=== PATIENT | female | born 1965 | race Caucasian/White ===

== ENCOUNTER 2024-05-24 09:03 | Outpatient (CLI) | payer MEDICARE, MEDICAID, SELFPAY ==
--- NOTE | 2024-05-24 09:09 | XR_ITS ---
FINAL REPORT TECHNIQUE: Bone mineral density was calculated of the lumbar spine and hip. CLINICAL HISTORY: BONE DENSITY COMPARISON: None FINDINGS: Using L1-4, the bone mineral density of the spine is 1.224 g/cm2, corresponding to T-score of 1.6. Using the left hip, the bone mineral density of the femoral neck is 0.801 g/cm2, corresponding to a T-score of -1.2. NOTE: T-score: Standard deviation compared with peak bone mass of young adult mean. *Following the recommendations of the International Society of Bone densitometry, classification of hip BMD is based on the lower of two T-scores; total hip or femoral neck. IMPRESSION: Diminished bone mineral density of the left hip consistent with low bone density. Normal bone mineral density of the lumbar spine, which may be artificially elevated secondary to hypertrophic changes. Reviewed, Interpreted and Dictated by Casey Canchola III, MD Transcribed by Cecy Meraz Authenticated and [facility] [place] [place]
== END 2024-05-24 23:59 | disposition home or self-care (01) ==
LOC: RAD 09:04
PROVIDERS: PCP Nurse Practitioner Family; Visit Provider Nurse Practitioner Family
DX: M81.0 Age-related osteoporosis without current pathological fracture (principal)
CPT/HCPCS: 77080

== ENCOUNTER 2024-06-25 14:34 | Outpatient (CLI) | payer MEDICARE, MEDICAID, SELFPAY ==
--- NOTE | 2024-06-25 14:40 | MR_ITS ---
FINAL REPORT CLINICAL HISTORY: LOWER BACK PAIN, follow up COMPARISON: None FINDINGS: Multiplanar MR imaging of the lumbar spine was performed without contrast. On the sagittal T2-weighted images, disc degeneration is seen throughout. There is mild retrolisthesis of L1 on L2 and L2 on L3. Endplate changes are noted, greatest at L1-2. A hemangioma is noted at L1. The conus has an unremarkable appearance. L1-2: Annular disc bulge, facet arthropathy, and osteophytes. Left foraminal disc protrusion. Mild bilateral neural foraminal narrowing. L2-3: Annular disc bulge, facet arthropathy, and osteophytes. Mild bilateral neural foraminal narrowing. L3-4: Annular disc bulge, facet arthropathy, and osteophytes. Right foraminal disc protrusion. Moderate right and mild left neural foraminal narrowing. L4-5: Annular disc bulge and facet arthropathy. Mild bilateral neural foraminal narrowing. L5-S1: Annular disc bulge and facet arthropathy. Mild bilateral neural foraminal narrowing. IMPRESSION: Multilevel degenerative disc disease and spondylosis as described. Disc protrusions at L1-2 and L3-4. Reviewed, Interpreted and Dictated by Casey Canchola III, MD Transcribed by Becky Mccarthy Authenticated and [facility]
== END 2024-06-25 23:59 | disposition home or self-care (01) ==
LOC: RAD 14:35
PROVIDERS: PCP Nurse Practitioner Family; Visit Provider Orthopaedic Surgery
DX: M41.9 Scoliosis, unspecified (principal); M54.59 Other low back pain
CPT/HCPCS: 72148

== ENCOUNTER 2024-07-01 11:09 | Day surgery (SDC) | payer MEDICARE, MEDICAID, SELFPAY ==
--- NOTE | 2024-07-01 11:28 | EXP.ANES.CKL ---
[facility] Disclaimer: The information contained in this section may have been updated after the patient was seen, as this information can be updated by other users. Medical History (Updated 07/01/24 @ 11:44 by Criss Call RN) Chronic kidney disease History of COVID-19 COPD (chronic obstructive pulmonary disease) Asthma Anxiety and depression Arthritis History of gastroesophageal reflux (GERD) Hypothyroid Diabetes Coronary artery disease Hypertension Hyperlipidemia History of heart attack Surgical History (Updated 07/01/24 @ 11:44 by Criss Call RN) History of surgery H/O tubal ligation History of cholecystectomy Family History Mother Anemia Asthma Cancer Heart attack Thyroid disorder Grandmother Anemia Asthma Diabetes Hypertension Stroke Tuberculosis Father Asthma Coronary artery disease Diabetes Heart attack Hypertension Thyroid disorder Brother Heart attack Hypertension Thyroid disorder Daughter Kidney disease Other Alcoholism Social History Smoking Status: Current every day smoker alcohol intake: never substance use type: denies use current occupational status: disabled Travel in the last 8 weeks: None adopted: No caregiver/support person: No household members: none housing: house lives independently: Yes marital status: caffeine: Yes [facility] Anesthesia Checklist Patient Identification Patient Identification: Arm Band and Verbal (Name & ) Structural Data Admitted From: Home Planned Operative Procedure/s: Colonoscopy Consent for Planned Operative Procedure(s) Verified: Yes Verified Documents: Surgical Consent and History and Physical NPO Status Verified Time NPO: 07:00 Additional verifications Fingerstick Blood Glucose: 165 Patient : No Anesthesia Reactions: No Cardiovascular Assessment Heart Sounds: S1 & S2 Pulse Rhythm: Irregular Peripheral Edema: No Airway Assessment Mallampati Score:: Class II C-Spine Mobility Assessed: Yes (FROM) TMJ Mobility Assessed: Yes Dentition: Edentulous Neurological Assessment Level of Consciousness: Awake, Appropriate and Follows Commands Hx Seizures: No Numbness or tingling in extremities: No Anesthesia Plan Anesthesia Risk discussed: Yes Anesthesia Plan: Verified ASA Class: III Anesthesia Type: MAC
[2024-07-01 11:40] VITALS: BP 133/87; PULSE 98; RESP 18; TEMP 36.4; O2SAT 95; BMI 34.9
[2024-07-01 11:45] LABS: POC Glucose,Bedside 165 (70-110)
[2024-07-01] MEDS: LACTATED RINGERS 1000ML 1,000 ML 25 ML IV (11:49)
[2024-07-01 12:04] VITALS: O2SAT 96
--- NOTE | 2024-07-01 12:04 | P.HP_ITS ---
History of Present Illness *Admission Date: 07/01/24 *Reason for visit:: Screening *History of present illness: Mrs. Condon is a 59-year-old female who is here for screening colonoscopy. The examination is deemed medically necessary for screening colonoscopy. The patient has been seen, interviewed and examined prior to the procedure by both myself and the anesthesia provider. [facility] Disclaimer: The information contained in this section may have been updated after the patient was seen, as this information can be updated by other users. Medical History (Updated 07/01/24 @ 12:05 by Christian Jimenez II, MD) Chronic kidney disease History of COVID-19 COPD (chronic obstructive pulmonary disease) Asthma Anxiety and depression Arthritis History of gastroesophageal reflux (GERD) Hypothyroid Diabetes Coronary artery disease Hypertension Hyperlipidemia History of heart attack Surgical History (Updated 07/01/24 @ 11:44 by Criss Call RN) History of surgery H/O tubal ligation History of cholecystectomy Family History Mother Anemia Asthma Cancer Heart attack Thyroid disorder Grandmother Anemia Asthma Diabetes Hypertension Stroke Tuberculosis Father Asthma Coronary artery disease Diabetes Heart attack Hypertension Thyroid disorder Brother Heart attack Hypertension Thyroid disorder Daughter Kidney disease Other Alcoholism Social History (Updated 07/01/24 @ 11:56 by Verito Perez CRNA) Smoking Status: Current every day smoker alcohol intake: never substance use type: denies use current occupational status: disabled Travel in the last 8 weeks: None adopted: No caregiver/support person: No household members: none housing: house lives independently: Yes marital status: caffeine: Yes Review of Systems Review of Systems Review of systems (narrative): Negative *Cardiovascular Comments: Negative *Gastrointestinal Comments: Negative *Genitourinary Comments: Negative *Musculoskeletal Comments: Negative *Neurologic Comments: Negative Meds Home Medications and Allergies Home Medications ?Medication ?Instructions ?Recorded ?Confirmed ?Type albuterol sulfate 2.5 mg/3 mL 0 mg continuous nebulization DAILY 12/14/23 07/01/24 History (0.083 %) solution for nebulization PRN Asthma albuterol sulfate 90 mcg/actuation 2 inh inhalation QID PRN Asthma 12/14/23 07/01/24 History aerosol inhaler atorvastatin 40 mg tablet 0 mg PO DAILY 12/14/23 07/01/24 History cetirizine 10 mg tablet 10 mg PO DAILY 12/14/23 07/01/24 History duloxetine 60 mg capsule,delayed 0 mg PO DAILY 12/14/23 07/01/24 History release empagliflozin 25 mg tablet 0 mg PO DAILY 12/14/23 07/01/24 History (Jardiance) fluticasone furoate 200 1 inh inhalation DAILY 12/14/23 07/01/24 History mcg-vilanterol 25 mcg/dose inhalation powder (Breo Ellipta) gabapentin 300 mg capsule 0 mg PO TID 12/14/23 07/01/24 History glipizide 10 mg tablet, extended 0 mg PO DAILY 12/14/23 07/01/24 History release 24 hr levothyroxine 88 mcg tablet 88 mcg PO DAILY 12/14/23 07/01/24 History losartan 25 mg tablet 25 mg PO BID 12/14/23 07/01/24 History metoprolol tartrate 25 mg tablet 25 mg PO BID 12/14/23 07/01/24 History mirtazapine 15 mg tablet 15 mg PO DAILY 12/14/23 07/01/24 History pantoprazole 40 mg tablet,delayed 40 mg PO DAILY 12/14/23 07/01/24 History release umeclidinium 62.5 mcg/actuation 1 inh inhalation DAILY 12/14/23 07/01/24 History blister powder for inhalation (Incruse Ellipta) semaglutide 2 mg/dose (8 mg/3 mL) 2 mg SQ WEEKLY 03/14/24 07/01/24 History subcutaneous pen injector (Ozempic) sodium,potassium,mag sulfates 17.5 See Rx Instructions PO .COMPLEX 06/21/24 07/01/24 Rx gram-3.13 gram-1.6 gram oral soln #354 mL (Suprep Bowel Prep Kit) aspirin 81 mg capsule 81 mg PO DAILY 07/01/24 07/01/24 History New Prescriptions to Start Prescriptions: Allergies Allergy/AdvReac Type Severity Reaction Status Date / Time Sulfa (Sulfonamide Allergy Unknown Rash Verified 07/01/24 11:29 Antibiotics) Exam Data for Last 24 hours Vital signs and Labs for Last 24 Hours: Temp Pulse Resp BP Pulse Ox O2 Del Method 97.6 F 98 H 18 133/87 95 Room Air 07/01/24 11:40 07/01/24 11:40 07/01/24 11:40 07/01/24 11:40 07/01/24 11:40 07/01/24 11:40 Laboratory Results - last 24 hr 07/01/24 11:38: POC Glucose 165 H I & O for Last 24 hours: Intake & Output 06/28/24 06/29/24 06/30/24 07/01/24 23:59 23:59 23:59 23:59 Weight 185 lb *Routine HEENT Exam Head: Present normocephalic Eye: Present EOMI and PERRL ENT: Present mucous membranes moist *Routine Neck Exam Neck: Present supple *Routine Respiratory Exam Respiratory: Present CTA bilaterally *Routine Cardiovascular Exam Cardiovascular: Present RRR *Routine Abdominal Exam Abdominal: Present soft and normoactive bowel sounds; Absent tenderness *Routine Rectal Exam Rectal:: deferred *Routine Genitalia Exam Genitalia:: deferred *Routine Extremities Exam Extremities: Absent cyanosis, clubbing or edema *Routine Skin Exam Skin: Present warm; Absent rash *Routine Neurological Exam Neurological: Present alert and oriented X3 Assessment and Plan *Assessment and plan (1) Screening for colon cancer: Status: Acute Category: Medical Code(s): Z12.11 - Encounter for screening for malignant neoplasm of colon Plan A/P: 1. Screening for colon cancer is the preprocedural diagnosis. The patient will be anesthetized/sedated using MAC sedation. The patient has been seen and examined. Cardiac and lung assessment prior to the examination is stable. Proceed with planned colonoscopy
--- NOTE | 2024-07-01 12:05 | P.PCN_ITS ---
[facility] Procedure Note Date: 07/01/24 Time: 12:34 Procedure Note:: Colonoscopy Procedure Report: Colonoscopy with cold snare polypectomy Endoscopist: Christian Jimenez II, MD Referring physician: PEDRO Clement Date of Procedure: July 01, 2024 Equipment: Olympus 190 variable stiffness pediatric colonoscope Sedation: MAC sedation Indication: Mrs. Condon is a 59-year-old female who is here for screening colonoscopy. Her last colonoscopy was 12 years ago. She does have some chronic constipation and bloating. She also has recently noted hemorrhoidal bleeding without hemorrhoid prolapse. She has had some weight loss on the diabetic medication Ozempic. She reports no family history of colon cancer. Procedure: Prior to the procedure, a history and physical exam was performed, and patient's medications and allergies were reviewed. The risks, benefits and alternatives of the sedation and procedure were discussed with the patient. All questions were answered and informed consent was obtained. The patient was brought to the procedure room. Patient identification and proposed procedure were verified by the physician and the nurse. The patient was placed in a left lateral decubitus position and the scope was passed under direct vision. Throughout the procedure, the patient's blood pressure, pulse, and oxygen saturations were monitored continuously. The colonoscopy was accomplished without difficulty. The patient tolerated the procedure well. Findings: On digital rectal examination there was normal rectal tone. There were no external hemorrhoids. The colonoscope was introduced through the anal canal to the rectum and advanced to the cecum. The ileocecal valve and appendiceal orifice were identified. The scope was advanced a short distance into the ileum which appeared grossly normal. The scope was then withdrawn into the colon. There were 2 polyps (descending x 1 (6 mm) and sigmoid x 1 (7 to 8 mm)). Both of these were removed via cold snare polypectomy. The remaining cecum, ascending and transverse colon and mucosa were grossly normal. There were scattered diverticuli throughout the descending and sigmoid colon (LEFT colon). The rectum itself was normal. Upon retroflexion within the rectum there were grade 1-2 internal hemorrhoids. The preparation was fair throughout with [place] Preparation Score of 7 out of 9 with some fiber residue especially in the cecum and right colon. The cecal time was 12 minutes. Impression: 1. Colonic polyps x 2 2. Left-sided diverticulosis 3. Fair preparation with moderate amount of fiber residue 4. Grade 1-2 internal hemorrhoids Plan: I will follow-up the polyp histology and recommend repeat surveillance colonoscopy again in 5 years. I am going to recommend a fiber bowel regimen on a long-term daily maintenance basis.
[2024-07-01 12:34] VITALS: BP 134/79; PULSE 90; RESP 16; TEMP 37.1; O2SAT 98
[2024-07-01 12:44] VITALS: BP 149/79; PULSE 92; RESP 16; O2SAT 97
[2024-07-01 12:54] VITALS: BP 135/90; PULSE 90; RESP 16; O2SAT 99
[2024-07-01 13:04] VITALS: BP 151/68; PULSE 93; RESP 16; O2SAT 99
== END 2024-07-01 13:14 | disposition home or self-care (01) ==
PROVIDERS: PCP Nurse Practitioner Family; Visit Provider Internal Medicine Gastroenterology
PROC: 0DJD8ZZ Inspection of Lower Intestinal Tract, Via Natural or Artificial Opening Endoscopic (ICD-10-PCS; CPT 45378; principal; 2024-07-01 12:30)
DX: K63.5 Polyp of colon (principal); K57.30 Diverticulosis of large intestine without perforation or abscess without bleeding; K64.8 Other hemorrhoids; K59.09 Other constipation; R14.0 Abdominal distension (gaseous); Z12.11 Encounter for screening for malignant neoplasm of colon; E11.9 Type 2 diabetes mellitus without complications; Z79.84 Long term (current) use of oral hypoglycemic drugs; Z79.85 Long-term (current) use of injectable non-insulin antidiabetic drugs
CPT/HCPCS: 45385; 82962; 88305; J7120

== ENCOUNTER 2024-08-01 07:25 | Outpatient (CLI) | payer MEDICARE, MEDICAID, SELFPAY ==
--- NOTE | 2024-08-01 07:27 | MR_ITS ---
FINAL REPORT CLINICAL HISTORY: LEFT SIDED BACK PAIN WITH LEFT LEG PAIN COMPARISON: None FINDINGS: Multiplanar MR imaging of the thoracic spine was performed without contrast. On the sagittal T2-weighted images, disc degeneration is seen throughout. There are mild endplate changes at multiple levels. The vertebral alignment is normal. The thoracic spinal cord has an unremarkable appearance without evidence of mass, edema or syrinx. There is no evidence of significant canal stenosis or cord compression. On the axial images, multilevel bulges and anterior osteophytes are noted. No focal soft disc protrusion is identified. There is no evidence of significant canal stenosis or cord compression. No paraspinous soft tissue abnormality is identified. IMPRESSION: Multilevel mild degenerative disc disease and spondylosis. No focal soft disc protrusion or significant central canal stenosis. Reviewed, Interpreted and Dictated by Casey Canchola III, MD Transcribed by Becky Mccarthy Authenticated and [facility]
== END 2024-08-01 23:59 | disposition home or self-care (01) ==
LOC: RAD 07:25
PROVIDERS: PCP Nurse Practitioner Family; Visit Provider Anesthesiology
DX: G57.70 Causalgia of unspecified lower limb (principal)
CPT/HCPCS: 72146